=== PATIENT | female | born 1975 | race African-American/Black ===

== ENCOUNTER 2018-05-24 07:41 | Outpatient (CLI) | payer OTHER ==
--- NOTE | 2018-05-24 08:58 | ULT ---
ULTRASOUND ABDOMEN COMPLETE: HISTORY: 42-year-old female with generalized abdominal pain. FINDINGS: The gallbladder has normal wall thickness and has no evidence of gallstones or sludge. The hepatic e chogenicity is normal. The kidneys have normal echogenicity, and there is no hydronephrosis. There is no splenomegaly. There is no abdominal aortic aneurysm. No free fluid is identified. The inferi or vena cava is visualized. The pancreas is visualized, although ultrasound is relatively insensitiv e for pancreatic pathology compared to CT and MRI. There is no biliary dilation. The common duct ca liber is 3 mm. IMPRESSION: Normal. kiran POS: MALISSA
== END 2018-05-24 07:42 | disposition home or self-care (01) ==
LOC: BICULT 07:41
PROVIDERS: ATTEND Internal Medicine Gastroenterology
DX: R10.9 Unspecified abdominal pain (principal)
CPT/HCPCS: 76700

== ENCOUNTER 2018-06-18 06:07 | Day surgery (SDC) | payer OTHER ==
--- NOTE | 2018-06-18 02:06 | HP ---
SHORT-STAY HISTORY AND PHYSICAL HISTORY OF PRESENT ILLNESS: This is a 42-year-old female with recurrent history of severe abdominal pain. The patient's comes in for EGD because of the above reason. The patient gives a history of chronic acid reflux over the years. She has complaint of abdominal pain over the epigastric area with nausea off and on. The symptoms are chronic in nature. The patient comes to the ED because of the above reason. ALLERGIES: PENICILLIN. SOCIAL HISTORY: The patient is a former smoker. Does not drink alcohol. MEDICAL ILLNESSES: 1. Chronic acid reflux. 2. Tubal ligation. PHYSICAL EXAMINATION: VITAL SIGNS: Pulse is 70, blood pressure 110/70. HEENT: Conjunctivae clear. NECK: Supple. No adenitis or thyromegaly noted. CARDIOVASCULAR: First and second heart sounds heard. LUNGS: Clear to auscultation. ABDOMEN: Soft. Abdomen is tender over the epigastric area. There is no rebound or guarding. EXTREMITIES: Revealed no edema. ADMITTING DIAGNOSES: 1. Chronic reflux. 2. Abdominal pain, nausea. PLAN: EGD. Job ID: [id number]
--- NOTE | 2018-06-18 15:20 | OP ---
DATE OF PROCEDURE: 06/18/2018 OPERATIVE PROCEDURE: Esophagogastroduodenoscopy with biopsy. PREOPERATIVE DIAGNOSES: A 42-year-old female with abdominal pain, nausea, chronic reflux, undergoing esophagogastroduodenoscopy. POSTOPERATIVE DIAGNOSES: 1. Normal esophagus. No esophagitis is seen. 2. Diffuse gastritis over the proximal stomach. 3. Normal duodenum. DESCRIPTION OF PROCEDURE: The patient was placed on her left lateral position and was given sedation by Anesthesia Department. An Pentax video gastroscope under direct vision passed down the oropharynx past the GE junction into the stomach and subsequently into the descending duodenum. Although, the patient complained of severe heart burn, the esophageal mucosa appeared completely normal. No esophageal varices. At the GE junction, no pathology was seen. The patient had diffuse gastritis involving the fundus, cardia, gastric body. At the gastric antrum, no pathology seen. At the duodenal bulb, descending duodenum, no pathology seen. The gastric mucosa was markedly erythematous over the proximal stomach. This was biopsied. The stomach was decompressed and the scope was removed. DISCHARGE PLANNING: This is a 42-year-old female came for EGD , due to abdominal pain, nausea, and also chronic reflux. The EGD showed gastritis of the proximal stomach. Biopsies were obtained. DISCHARGE RECOMMENDATION: 1. Start the patient on omeprazole 40 once a day. 2. Await gastric biopsy and decide further course of treatment. Job ID: [id number] [facility]
[2018-06-18] MEDS ORDERED: PROPOFOL 200 MG/20 ML VIAL ONE (20:12)
[2018-06-18] MEDS ORDERED: Lidocaine 1% PF 5 ML VIAL ONE (20:12)
== END 2018-06-18 09:05 | disposition home or self-care (01) ==
LOC: SDC 06:07
PROVIDERS: ATTEND Internal Medicine Gastroenterology
PROC: 0DB68ZZ Excision of Stomach, Via Natural or Artificial Opening Endoscopic (ICD-10-PCS; principal; 2018-06-18)
DX: K29.50 Unspecified chronic gastritis without bleeding (principal); B96.81 Helicobacter pylori [H. pylori] as the cause of diseases classified elsewhere; K21.9 Gastro-esophageal reflux disease without esophagitis; Z98.51 Tubal ligation status; Z88.0 Allergy status to penicillin; Z87.891 Personal history of nicotine dependence
CPT/HCPCS: 88305; 88312; J2001; J2704

== ENCOUNTER 2018-08-09 16:43 | Outpatient (CLI) | payer OTHER ==
[2018-08-09 17:21] LABS: Hemoglobin 14.2 g/dL (12.0-16.0); Mean Corpuscular HGB CONC 33.4 g/dL (32.0-36.0); Mean Corpuscular Hemoglobin 28.9 pg (27.0-31.0); Mean Corpuscular Volume 86.7 fL (78.0-98.0); Mean Platelet Volume 8.2 fL (7.4-10.4); Platelet Count 319 thou/uL (130-400); Red Blood Cell (RBC) Count 4.91 mill/uL (4.20-5.40); White Blood Cell (WBC) Count 10.8 thou/uL (4.8-10.8)
[2018-08-09 17:41] LABS: Anion Gap 14 mmol/L (10-20); BUN (Urea Nitrogen) 18 mg/dL (7.0-18.7); Calc. Creatinine Clearance 0 mL/min (70-130); Calcium 9.6 mg/dL (7.8-10.44); Carbon Dioxide 24 mmol/L (22-29); Chloride 101 mmol/L (98-107); Estimated GFR-MDRD 85; Glucose 89 mg/dL (70-105); Potassium 3.1 mmol/L (3.5-5.1); Sodium 136 mmol/L (136-145)
[2018-08-09 18:03] LABS: BHCG - Serum Negative (NEGATIVE); Pregs Control Background? CLEAR/WHITE (CLR/WHITE); Pregs Control Bar Appear? YES (CONTROL BAR)
== END 2018-08-09 16:44 | disposition home or self-care (01) ==
LOC: LABBT 16:43
PROVIDERS: ATTEND Obstetrics & Gynecology
DX: Z01.812 Encounter for preprocedural laboratory examination (principal); N92.0 Excessive and frequent menstruation with regular cycle; D25.9 Leiomyoma of uterus, unspecified
CPT/HCPCS: 80048; 84703; 85027; 86850; 86900; 86901

== ENCOUNTER 2018-08-10 11:09 | Day surgery (SDC) | payer OTHER ==
[2018-08-09 17:03] VITALS: BMI 28.5
[2018-08-10] MEDS ORDERED: CeleCOXIB 100 MG CAP ONE (12:21)
[2018-08-10] MEDS ORDERED: Famotidine/PF 20 mg/2ml Vial ONE (12:21)
[2018-08-10] MEDS ORDERED: Gabapentin 300 MG CAP ONE (12:21)
[2018-08-10] MEDS ORDERED: Scopolamine 1.5 mg/72 hour Patch ONE (13:11)
[2018-08-10] MEDS ORDERED: Fentanyl 100 MCG/2 ML VIAL ONE ×2 (13:11→15:43)
[2018-08-10] MEDS ORDERED: Ondansetron PF 4 MG/2 ML Vial ONE (14:28)
[2018-08-10] MEDS ORDERED: Dexamethasone 20 MG/5 ML VIAL ONE (14:28)
[2018-08-10] MEDS ORDERED: Ketorolac Tromethamine 30 MG/ML VIAL ONE (14:28)
--- NOTE | 2018-08-10 17:10 | OP ---
DATE OF PROCEDURE: 08/10/2018 PREOPERATIVE DIAGNOSES: 1. Menorrhagia. 2. Dysmenorrhea. 3. Fibroid uterus. POSTOPERATIVE DIAGNOSES: 1. Menorrhagia. 2. Dysmenorrhea. 3. Fibroid uterus. PROCEDURES PERFORMED: 1. Cervical dilation. 2. Endometrial curettage. 3. Hysteroscopy. 4. Lenoor ablation. JUNIOR LOAN PROCESSOR: None. COMPLICATIONS: None. ESTIMATED BLOOD LOSS: Less than 10 mL. OPERATIVE FINDINGS: 1. Uterus sounded to 8 cm. Cervix sounded to approximately 3.5 cm. 2. Normal appearing endometrial cavity with the exception of two small polyps. 3. Tubal ostia identified bilaterally. 4. Normal cervix and vagina. DESCRIPTION OF PROCEDURE: The patient was taken back to the OR with IV fluids running. When she was in the OR, she was placed in dorsal supine position and anesthesia was obtained. Once the patient was asleep, she was placed in low dorsal lithotomy position. The vagina was prepped and draped in normal fashion for vaginal surgery. The bladder drained approximately 80 mL of urine. An operative speculum was placed into the vagina, and the anterior lip of the cervix was grasped with a single-tooth tenaculum. The uterus sounded to approximately 8 cm. The cervix was then serially dilated to allow for passage of a 5 mm hysteroscope. After the cervix was dilated, the hysteroscope was placed through the uterus into the endometrial cavity under direct visualization. The cavity was distended with normal saline. There was a normal intrauterine cavity with the exception of two very small polyps. Pictures were captured. After the hysteroscopy was complete, the camera was removed. The cervix was then dilated to allow passage of the Leonor device. The cervix was then sounded to approximately 3.5 cm. The Leonor was set to a cavity length of 4.5 cm. It was gently placed through the cervix into the endometrial cavity and the device was deployed within the endometrium without complication. Two safety tests were performed per protocol and with safety verified, the ablation then began and was completed after 120 seconds. Of note, prior to the ablation, but after the hysteroscopy, a gentle curettage was performed with the two polypoid-appearing specimens identified and sent for pathologic review. After the 120 seconds of ablation was complete, the handle was retracted and the device was removed from the uterus and cervix. No bleeding was noted from the cervix or from the tenaculum site. The patient was then cleaned and dried and taken out of lithotomy position and transferred to the recovery room in good condition. Job ID: [id number]
[2018-08-10] MEDS ORDERED: HYDROcodone/Acetaminophen 5/325 mg Tablet ONE (17:27)
== END 2018-08-10 18:44 | disposition home or self-care (01) ==
LOC: SDC 11:09
PROVIDERS: ATTEND Obstetrics & Gynecology
PROC: 0U5B8ZZ Destruction of Endometrium, Via Natural or Artificial Opening Endoscopic (ICD-10-PCS; principal; 2018-08-10)
PROC: 0UDB8ZZ Extraction of Endometrium, Via Natural or Artificial Opening Endoscopic (ICD-10-PCS; principal; 2018-08-10)
DX: D25.9 Leiomyoma of uterus, unspecified (principal); N84.0 Polyp of corpus uteri; Z87.891 Personal history of nicotine dependence; Z98.51 Tubal ligation status; Z88.0 Allergy status to penicillin; Z79.2 Long term (current) use of antibiotics; Z79.899 Other long term (current) drug therapy; Z98.890 Other specified postprocedural states
CPT/HCPCS: 88305; J1100; J1885; J2405; J3010; S0028

== ENCOUNTER 2021-10-25 08:38 | Outpatient (CLI) | payer OTHER | END 2021-10-25 08:39 | disposition home or self-care (01) | LOC: BICULT 08:38 | DX: R22.2 Localized swelling, mass and lump, trunk (principal) | CPT/HCPCS: 76705 ==